=== PATIENT | male | born 1950 | race Caucasian/White ===

== ENCOUNTER 2021-12-18 13:53 | Emergency (ER) | payer OTHER ==
[2021-12-18 16:16] LABS: Absolute Lymphocytes (CBC) 1.9 K/uL (0.7-4.9); Hematocrit 43.9 % (39.6-49.0); Lymphocytes % 31.2 % (15.3-44.8); MCV 95.7 fL (80-100); MPV 7.3 fL (7.6-11.3); RBC Red Blood Cell Count 4.58 M/uL (4.33-5.43)
--- NOTE | 2021-12-18 16:18 | RAD REPORT ---
EXAM DESCRIPTION: RAD - Chest Single View - 12/18/2021 4:11 pm CLINICAL HISTORY: Hypertension COMPARISON: No comparisons FINDINGS: Lines: None. Lungs: No evidence of edema or pneumonia. Pleural: No significant pleural effusions or pneumothorax. Cardiac: The heart size is within normal limits. Mediastinum: Within normal limits. Bones: No acute fractures. Other: None IMPRESSION: No acute cardiopulmonary disease.
[2021-12-18 16:33] LABS: Potassium 4.7 mmol/L (3.5-5.1)
--- NOTE | 2021-12-18 16:37 | EDPHYS ---
Physician Documentation [facility] Name: Mio Jon Age: 71 yrs Sex: Male : 1950 Arrival Date: 12/18/2021 Time: 13:55 Bed 2 Private MD: Be Mccollum T ED Physician Joaquim Monterroso HPI: 12/18 16:27 This 71 yrs old Male presents to ER via Ambulatory with complaints of High Blood kdr Pressure. 16:27 The patient had slight headache and felt slightly off this morning and so he stopped by [facility] local drugstore and checked his blood pressure and found it to be elevated. He noted that it was approximately 169 systolic. Subsequently he googled the circumstance and then came to the ED to get checked out. Since he arrived his headache has resolved. It was very minor to begin with. As blood pressure appears to have normalized. Does not have or know of any reason why the blood pressure would have been elevated initially. He is otherwise back to the baseline at this time.. Onset: The symptoms/episode began/occurred today. Severity of symptoms: At their worst the symptoms were very mild in the emergency department the symptoms have resolved. The patient has not experienced similar symptoms in the past. The patient has not recently seen a physician. Historical: - Allergies: 14:08 No Known Allergies; bm7 - Immunization history:: Adult Immunizations up to date, Client reports receiving the 2nd dose of the Covid vaccine. - Social history:: Smoking status: Patient reports the use of cigarette tobacco products, smokes one-half pack cigarettes per day. ROS: 16:27 Constitutional: Negative for fever, chills, and weight loss, Eyes: Negative for injury, kdr pain, redness, and discharge, ENT: Negative for injury, pain, and discharge, Neck: Negative for injury, pain, and swelling, Cardiovascular: Negative for chest pain, palpitations, and edema, Respiratory: Negative for shortness of breath, cough, wheezing, and pleuritic chest pain, Abdomen/GI: Negative for abdominal pain, nausea, vomiting, diarrhea, and constipation, Back: Negative for injury and pain, : Negative for injury, bleeding, discharge, and swelling, MS/Extremity: Negative for injury and deformity, Skin: Negative for injury, rash, and discoloration, Psych: Negative for depression, anxiety, suicide ideation, homicidal ideation, and hallucinations, Allergy/Immunology: Negative for hives, rash, and allergies, Endocrine: Negative for neck swelling, polydipsia, polyuria, polyphagia, and marked weight changes, Hematologic/Lymphatic: Negative for swollen nodes, abnormal bleeding, and unusual bruising. 16:27 Neuro: Positive for headache, Negative for altered mental status, dizziness, gait disturbance, hearing loss, loss of consciousness, numbness, seizure activity, speech changes, syncope, near syncope, tingling, tinnitus, tremor, visual changes, weakness. Exam: 16:27 Constitutional: This is a well developed, well nourished patient who is awake, alert, kdr and in no acute distress. Head/Face: Normocephalic, atraumatic. Eyes: Pupils equal round and reactive to light, extra-ocular motions intact. Lids and lashes normal. Conjunctiva and sclera are non-icteric and not injected. Cornea within normal limits. Periorbital areas with no swelling, redness, or edema. Neck: Trachea midline, no thyromegaly or masses palpated, and no cervical lymphadenopathy. Supple, full range of motion without nuchal rigidity, or vertebral point tenderness. No Meningismus. Chest/axilla: Normal chest wall appearance and motion. Nontender with no deformity. No lesions are appreciated. Cardiovascular: Regular rate and rhythm with a normal S1 and S2. No gallops, murmurs, or rubs. Normal PMI, no JVD. No pulse deficits. Respiratory: Lungs have equal breath sounds bilaterally, clear to auscultation and percussion. No rales, rhonchi or wheezes noted. No increased work of breathing, no retractions or nasal flaring. Abdomen/GI: Soft, non-tender, with normal bowel sounds. No distension or tympany. No guarding or rebound. No evidence of tenderness throughout. Back: No spinal tenderness. No costovertebral tenderness. Full range of motion. Skin: Warm, dry with normal turgor. Normal color with no rashes, no lesions, and no evidence of cellulitis. MS/ Extremity: Pulses equal, no cyanosis. Neurovascular intact. Full, normal range of motion. Neuro: Awake and alert, GCS 15, oriented to person, place, time, and situation. Cranial nerves II-XII grossly intact. Motor strength 5/5 in all extremities. Sensory grossly intact. Cerebellar exam normal. Normal gait. Psych: Awake, alert, with orientation to person, place and time. Behavior, mood, and affect are within normal limits. Vital Signs: 14:06 BP 163 / 103; Pulse 102; Resp 22; Temp 98.5; Pulse Ox 100% ; Weight 77.11 kg; Height 6 bm7 ft. 4 in. (193.04 cm); Pain 6/10; 14:10 BP 155 / 93 Standing; bm7 15:11 BP 189 / 97; Pulse 77; Resp 16; Pulse Ox 99% ; Pain 5/10; mb8 15:18 BP 165 / 97; Pulse 73; mb8 15:51 BP 139 / 87; Pulse 67; Resp 18; Pulse Ox 98% ; Pain 0/10; mb8 16:20 BP 154 / 92; Pulse 68; Resp 16; Pulse Ox 100% ; Pain 2/10; mb8 14:06 Body Mass Index 20.69 (77.11 kg, 193.04 cm) bm7 MDM: 16:27 Data reviewed: lab test result(s), radiologic studies. Counseling: I had a detailed kdr discussion with the patient and/or guardian regarding: the historical points, exam findings, and any diagnostic results supporting the discharge/admit diagnosis, lab results, the need for outpatient follow up. 16:37 Patient medically screened. kdr 12/18 15:58 Order name: Basic Metabolic Panel; Complete Time: 16:36 kdr 12/18 15:58 Order name: CBC with Diff; Complete Time: 16:36 kdr 12/18 15:58 Order name: Troponin HS; Complete Time: 16:36 kdr 12/18 15:58 Order name: XRAY Chest (1 view); Complete Time: 16:36 kdr 12/18 15:58 Order name: IV Saline Lock; Complete Time: 16:11 kdr 12/18 15:58 Order name: Labs collected and sent; Complete Time: 16:11 kdr 12/18 15:58 Order name: O2 Sat Monitoring; Complete Time: 16:11 kdr Administered Medications: No medications were administered Disposition Summary: 12/18/21 16:37 Discharge Ordered Location: Home kdr Problem: new kdr Symptoms: are resolved kdr Condition: Stable kdr Diagnosis - Hypertensive heart disease without heart failure - Transient and resolved kdr Followup: kdr - With: Be Mccollum MD - When: 2 - 3 days - Reason: If symptoms return, Further diagnostic work-up, Recheck today's complaints, Continuance of care, Re-evaluation by your physician Discharge Instructions: - Discharge Summary Sheet kdr - Hypertension, Adult, [id number] kdr Forms: - Medication Reconciliation Form kdr - Thank You Letter kdr Signatures: Dispatcher [employer] Joaquim Munguia MD MD kdr Mimi Charles RN RN bm7
--- NOTE | 2021-12-18 16:37 | ER ---
Nurse's Notes [facility] Name: Mio Jon Age: 71 yrs Sex: Male : 1950 Arrival Date: 12/18/2021 Time: 13:55 Bed 2 Private MD: Be Mccollum T Diagnosis: Hypertensive heart disease without heart failure-Transient and resolved Presentation: 12/18 14:06 Chief complaint: Patient states: Complains of headache, high blood pressure. States he bm7 is lightheaded when standing. Coronavirus screen: Client denies travel out of the [place] in the last 14 days. At this time, the client does not indicate any symptoms associated with coronavirus-19. Ebola Screen: No symptoms or risks identified at this time. Initial Sepsis Screen: Does the patient meet any 2 criteria? No. Patient's initial sepsis screen is negative. Does the patient have a suspected source of infection? No. Patient's initial sepsis screen is negative. Risk Assessment: Do you want to hurt yourself or someone else? Patient reports no desire to harm self or others. Onset of symptoms was December 18, 2021. 14:06 Method Of Arrival: Ambulatory bm7 14:06 Acuity: RASTA 3 bm7 Triage Assessment: 14:08 General: Appears in no apparent distress. Behavior is calm, cooperative, appropriate bm7 for age. Pain: Complains of pain in forehead. Historical: - Allergies: 14:08 No Known Allergies; bm7 - Immunization history:: Adult Immunizations up to date, Client reports receiving the 2nd dose of the Covid vaccine. - Social history:: Smoking status: Patient reports the use of cigarette tobacco products, smokes one-half pack cigarettes per day. Screenin:10 Abuse screen: Denies threats or abuse. Denies injuries from another. Nutritional mb8 screening: No deficits noted. Tuberculosis screening: No symptoms or risk factors identified. Fall Risk None identified. Assessment: 15:09 General: Appears in no apparent distress. comfortable, Behavior is calm, cooperative, mb8 appropriate for age. Pain: Complains of pain in Head Pain does not radiate. Pain currently is 5 out of 10 on a pain scale. Quality of pain is described as aching, Pain began suddenly. Neuro: No deficits noted. Cardiovascular: Reports lightheadedness, Denies chest pain, diaphoresis, nausea, palpitations, shortness of breath, Capillary refill < 3 seconds Pulses are all present. are 3+ in right radial artery and left radial artery Rhythm is sinus rhythm. Respiratory: No deficits noted. Airway is patent Respiratory effort is even, unlabored, Respiratory pattern is regular, symmetrical, Breath sounds are clear bilaterally. GI: No deficits noted. 15:50 Reassessment: No changes from previously documented assessment. Patient and/or family mb8 updated on plan of care and expected duration. Pain level reassessed. Patient is alert, oriented x 3, equal unlabored respirations, skin warm/dry/pink. 16:20 Reassessment: No changes from previously documented assessment. Patient and/or family mb8 updated on plan of care and expected duration. Pain level reassessed. Patient is alert, oriented x 3, equal unlabored respirations, skin warm/dry/pink. Vital Signs: 14:06 BP 163 / 103; Pulse 102; Resp 22; Temp 98.5; Pulse Ox 100% ; Weight 77.11 kg; Height 6 bm7 ft. 4 in. (193.04 cm); Pain 6/10; 14:10 BP 155 / 93 Standing; bm7 15:11 BP 189 / 97; Pulse 77; Resp 16; Pulse Ox 99% ; Pain 5/10; mb8 15:18 BP 165 / 97; Pulse 73; mb8 15:51 BP 139 / 87; Pulse 67; Resp 18; Pulse Ox 98% ; Pain 0/10; mb8 16:20 BP 154 / 92; Pulse 68; Resp 16; Pulse Ox 100% ; Pain 2/10; mb8 14:06 Body Mass Index 20.69 (77.11 kg, 193.04 cm) bm7 Vitals: 15:51 Cardiac Rhythm Assessment Sinus rhythm. mb8 ED Course: 13:55 Patient arrived in ED. mr 13:56 Be Mccollum MD is Private Physician. mr 13:56 Joaquim Monterroso MD is Attending Physician. kdr 14:08 Triage completed. bm7 14:08 Arm band placed on right wrist. Patient placed in waiting room, Patient notified of bm7 wait time. 15:08 Rj Fall, BOUCHRA is Primary Nurse. mb8 15:10 Patient has correct armband on for positive identification. Bed in low position. Call mb8 light in reach. Side rails up X 1. Client placed on continuous cardiac and pulse oximetry monitoring. NIBP monitoring applied. director automotive on. 15:11 No provider procedures requiring assistance completed. mb8 16:05 Inserted saline lock: 20 gauge in left antecubital area, using aseptic technique. Blood mb8 collected. 16:12 XRAY Chest (1 view) In Process Unspecified. EDMS 16:36 Be Mccollum MD is Referral Physician. kdr 16:50 IV discontinued, intact, bleeding controlled, No redness/swelling at site. Pressure mb8 dressing applied. Administered Medications: No medications were administered Medication: 15:10 VIS not applicable for this client. mb8 Outcome: 16:37 Discharge ordered by MD. kdr 16:53 Discharged to home ambulatory. mb8 16:53 Condition: stable 16:53 Discharge instructions given to patient, Instructed on discharge instructions, follow up and referral plans. Demonstrated understanding of instructions, follow-up care. 16:54 Patient left the ED. mb8 Signatures: Dispatcher [employer] EDMO Joaquim Monterroso MD MD [facility] Oliva Jules mr Mimi Charles, RN RN bm7 Rj Fall, BOUCHRA RN mb8 Corrections: (The following items were deleted from the chart) 16:53 16:53 Discharge instructions given to patient, Instructed on discharge instructions, mb8 follow up and referral plans. Demonstrated understanding of instructions, follow-up care, Prescriptions given X mb8
[2021-12-18 18:23] VITALS: TEMP 98.5
[2021-12-18 18:36] VITALS: BP 154/92; O2SAT 100
== END 2021-12-18 16:54 | disposition home or self-care (01) ==
LOC: ER 13:53
DX: I11.9 Hypertensive heart disease without heart failure (principal); F17.210 Nicotine dependence, cigarettes, uncomplicated
CPT/HCPCS: 36415; 71045; 80048; 84484; 85025; 99284